=== PATIENT | female | born 1995 | race Caucasian/White ===

== ENCOUNTER 2020-08-10 11:44 | Outpatient (REF) | payer OTHER, SELFPAY ==
[2020-08-10 13:00] LABS: COVID-19 Test Negative (Negative)
== END 2020-08-10 11:45 | disposition home or self-care (01) ==
LOC: HO.LAB 11:44
PROVIDERS: Visit Provider Internal Medicine
DX: Z20.828 Contact with and (suspected) exposure to other viral communicable diseases (principal)
CPT/HCPCS: 87635; C9803

== ENCOUNTER 2021-11-16 14:10 | Outpatient (REF) | payer OTHER, SELFPAY ==
--- NOTE | ~2021-11-16 | MR_ITS ---
EXAMINATION: MRI RIGHT FOOT CLINICAL INFORMATION: Foot pain off-and-on. Evaluate fifth metatarsal bone. COMPARISON: None TECHNIQUE: Imaging in a high-field magnet without contrast. FINDINGS: Marrow signal in the fifth metatarsal is within normal limits. No evidence of edema to indicate significant stress injury, bone bruise or fracture is seen. No suspicious marrow signal changes seen. In the remainder of the bones, no evidence of edema to indicate significant stress injury or fracture. There is a T2 bright focus in the soft tissues lateral to the second middle phalanx measuring 5 x 6 x 3 mm. This of uncertain etiology. Differential considerations include ganglion cyst. Visualized tendons are intact. No evidence of tenosynovitis. Limited evaluation of the Lisfranc ligament, grossly intact. Visualized plantar aponeurosis is intact. MR/MR foot RT wo con IMPRESSION: 1. Marrow signal in the fifth metatarsal is within normal limits, without evidence of acute stress injury or fracture. 2. There is a 5 x 6 x 2 mm T2 bright focus in the soft tissues lateral to the second middle phalanx. This of uncertain etiology. Differential consideration include ganglion cyst, but other etiologies cannot be excluded. Please clinically correlate.
== END 2021-11-16 14:11 | disposition home or self-care (01) ==
LOC: HO.MRI 14:10
PROVIDERS: PCP Nurse Practitioner Family; Visit Provider Podiatrist
DX: M76.71 Peroneal tendinitis, right leg (principal)
CPT/HCPCS: 73718

== ENCOUNTER 2022-10-09 09:20 | Outpatient (REF) | payer OTHER, SELFPAY ==
[2022-10-09 09:37] LABS: MANUAL DIFF FLAG NO
[2022-10-09 10:06] LABS: Basophils Percent Auto 0.4 % (0-2); Eosinophils Absolute Auto 0.3 X10*3/uL (0.0-0.4); Eosinophils Percent Auto 2.6 % (0-4); Hematocrit 39.8 % (37.0-47.0); Hemoglobin 12.8 g/dl (12.0-16.0); Imm Gran Abs Auto 0.03 X10*3/uL (0.00-0.03); Imm Gran Pct Auto 0.3 % (0.0-0.4); Lymphocytes Absolute Auto 2.6 X10*3/uL (1.2-4.9); Lymphocytes Percent Auto 23.4 % (20-40); Mean Corpuscular HGB Conc 32.2 g/dl (31.0-35.0); Mean Corpuscular Hemoglobin 27.4 pg (27.0-33.0); Mean Corpuscular Volume 85.2 fL (80.0-98.0); Mean Platelet Volume 9.8 fL (9.4-12.3); Monocytes Absolute Auto 0.4 X10*3/uL (0.1-1.2); Monocytes Percent Auto 3.8 % (2-11); Neutrophils Absolute Auto 7.6 x10*3/uL (2.0-8.3); Neutrophils Percent Auto 69.5 % (45-73); Platelet Count 378 X10*3/uL (160-400); Red Blood Count 4.67 X10*6/uL (4.20-5.50); Red Cell Distribution Width 13.2 % (11.0-16.0); White Blood Count 10.9 X10*3/uL (4.8-10.8)
[2022-10-09 10:08] LABS: Estimated Average Glucose 111 mg/dL; Hemoglobin A1c % 5.5 %
[2022-10-09 11:01] LABS: Alanine Aminotransferase 20 U/L (0-31); Anion Gap 11 (12-20); Aspartate Amino Transferase 19 U/L (5-31); Blood Urea Nitrogen 9 mg/dL (9-16); Calcium 9.3 mg/dL (8.4-10.2); Carbon Dioxide 26 mmol/L (22-29); Chloride 107 mmol/L (96-108); Cholesterol 205 mg/dL; Estimated Glomerular Filt Rate > 60; Glucose Random 86 mg/dL (60-115); HDL Cholesterol 59 mg/dL; LDL Cholesterol Calculated 127 mg/dl; Potassium 4.9 mmol/L (3.3-5.1); Sodium 139 mmol/L (135-145); Triglycerides 99 mg/dL
[2022-10-09 11:19] LABS: Thyroid Stimulating Hormone 2.31 uIU/mL (0.32-4.0)
== END 2022-10-09 09:21 | disposition home or self-care (01) ==
LOC: HO.LAB 09:20
PROVIDERS: Visit Provider Nurse Practitioner Family
DX: Z00.00 Encounter for general adult medical examination without abnormal findings (principal); F41.9 Anxiety disorder, unspecified; F32.9 Major depressive disorder, single episode, unspecified; E78.5 Hyperlipidemia, unspecified; G47.33 Obstructive sleep apnea (adult) (pediatric)
CPT/HCPCS: 36415; 80048; 80061; 83036; 84443; 84450; 84460; 85025